=== PATIENT | female | born 2000 | race Asian ===

== ENCOUNTER 2025-02-04 05:02 | Emergency (ER) | payer BC, MEDICAID ==
[~2025-02-04] VITALS: Ht 157.5 cm; Wt 66.0 kg
[2025-02-04 05:06] VITALS: O2SAT 99
[2025-02-04] MEDS ORDERED: AMPH25CA MT (05:27)
[2025-02-04 05:48] LABS: CLARITY URINE CLOUDY (CLEAR); COLOR URINE YELLOW (YELLOW); GLUCOSE URINE NEGATIVE (NEGATIVE); KETONES URINE 1+ (NEGATIVE); LEUKOCYTE ESTERASE URINE 1+ (NEGATIVE); NITRITE URINE NEGATIVE (NEGATIVE); OCCULT BLOOD URINE NEGATIVE (NEGATIVE); PH URINE 6.0 (4.5-8.0); PROTEIN URINE TRACE (NEGATIVE); SPECIFIC GRAVITY URINE 1.025 (1.005-1.030); UROBILINOGEN URINE 1.0 E.U./dL (0.2-1.0)
[2025-02-04 06:09] LABS: BASOPHILS % 0.9 % (0.0-2.0); EOSINOPHILS % 0.4 % (0.0-5.0); HEMATOCRIT. 41.4 % (36.0-48.0); HEMOGLOBIN. 13.5 g/dL (12.0-16.0); LYMPHOCYTES % 23.0 % (20.0-50.0); MEAN PLATELET VOLUME 8.3 fl (7.4-10.4); MONOCYTES % 6.6 % (2.0-8.0); NEUTROPHILS % 69.1 % (40.0-76.0); PLATELET 342 x1000/uL (130-400); RED BLOOD CELL COUNT 5.00 mill/uL (4.2-5.4); RED CELL DISTRIBUTION WIDTH 13.5 % (11.6-14.6)
[2025-02-04 06:09] LABS: BACTERIA URINE NONE SEEN; RBC URINE 0-2 /hpf (0-2); SQUAMOUS EPITHELIAL CELL URINE FEW /lpf (RARE/1+); WBC URINE NONE SEEN /hpf (0-2)
[2025-02-04 06:11] LABS: *AMPHETAMINES SCREEN URINE PRESUMPTIVE POSITIVE (NEGATIVE); *BARBITURATES SCREEN URINE NEGATIVE (NEGATIVE); *BENZODIAZEPINES SCREEN URINE NEGATIVE (NEGATIVE); *COCAINE SCREEN URINE NEGATIVE (NEGATIVE); CANNABINOID URINE SCREEN PRESUMPTIVE POSITIVE (NEGATIVE); ECSTASY MDMA SCREEN URINE NEGATIVE (NEGATIVE); METHADONE URINE SCREEN NEGATIVE (NEGATIVE); OPIATES URINE SCREEN NEGATIVE (NEGATIVE); PHENCYCLIDINE URINE SCREEN NEGATIVE (NEGATIVE)
[2025-02-04 06:24] LABS: CREATININE 0.7 mg/dL (0.6-1.0)
[2025-02-04 06:25] LABS: ETHANOL BLOOD < 10 mg/dL (<10); UREA NITROGEN BLOOD 7 mg/dL (9-23)
[2025-02-04 06:44] LABS: HCG SCREEN NEGATIVE
[2025-02-04] MEDS: HYDRALAZINE HCL 50MG TABLET PO ONE (10:35)
[2025-02-04 11:20] VITALS: BP 128/89; PULSE 96; RESP 16; TEMP 37.2; O2SAT 99
== END 2025-02-04 11:32 | disposition short-term general hospital (02) ==
LOC: ER 05:02
DX: F41.9 Anxiety disorder, unspecified (principal); F32.A Depression, unspecified; Z20.822 Contact with and (suspected) exposure to COVID-19; Z79.899 Other long term (current) drug therapy
CPT/HCPCS: 99285; 87426; 80048; 81003; 80307; 84703; 85025; 36415; 93005; G0480; 80305; 80320; 80329; A4606